=== PATIENT | male | born 1965 | race Caucasian/White ===

== ENCOUNTER 2025-03-09 14:00 | Emergency (ER) | payer OTHER, SELFPAY ==
--- NOTE | ~2025-03-09 | CT_ITS ---
EXAMINATION: CT brain wo con DATE: 03/09/2025 15:02 INDICATION: Head injury TECHNIQUE: Computed tomography (CT) of the head was performed without intravenous contrast. Sagittal and coronal reconstructions were performed. The mA was adjusted according to patient size. Iterative reconstruction technique was employed. The dose-length product was 681.00 mGy-cm. COMPARISON: None FINDINGS: No fracture. No acute intracranial hemorrhage, acute infarction or abnormal extra axial fluid collect ion. Ventricles are normal and symmetric. No mass/mass effect. The orbits, paranasal sinuses and mast oid air cells are normal. IMPRESSION: 1. Normal head CT. No fracture or acute intracranial process.. Reviewed, dictated and finalized at location A.
--- OUTSIDE RECORDS SUMMARY | 2025-03-09 14:04 | XMS_ITS | Referral Summary ---
Author Organization [facility] Address [address] [place] [address] Care Team Providers Care Specialty Sales Consultant Name Role Phone Joshua Oakley MD Primary Care Provider Ivan Mijares MD Unavailable [phone] Encounters Date Type Department Care Team Description 01/03/2025 3:30 PM CDT Office Visit [facility] Family Medicine at [place] [address] [place] [address] Joshua Oakley MD Annual physical exam (Primary Dx); Colon cancer screening from Last 3 Months Allergies No known active allergies Medications omeprazole (PriLOSEC) 40 mg capsule Take 1 capsule (40 mg total) by mouth daily 90 capsule 1 4 Active fluticasone propionate (FLONASE) 50 mcg/actuation nasal sprayIndication s:Dysfunction of left eustachian tube Administer 2 sprays into each nostril daily 1 each 3 4 Active rosuvastatin (CRESTOR) 10 mg tablet Take 1 tablet (10 mg total) by mouth daily 30 tablet 5 5 Active pregabalin (LYRICA) 75 mg capsuleIndicati ons:Neuropathic pain TAKE 1 CAPSULE BY MOUTH TWICE A DAY 180 capsule 5 Active meloxicam (MOBIC) 15 mg tablet Take 1 tablet (15 mg total) by mouth daily 5 Active clotrimazole-be tamethasone (LOTRISONE) cream Apply topically 2 (two) times a day 05/13/202 5 Active Active Problems Problem Noted Date Diagnosed Date Bilateral tennis elbow 11/18/2021 Lung nodule 06/09/2021 Prediabetes 06/09/2021 Neuropathic pain 06/08/2021 Primary osteoarthritis of left shoulder 11/07/19 Irritable bowel syndrome wit h both constipation and diarrhea 10/29/2020 Mixed hyperlipidemia 10/29/2020 Annual physical exam 09/03/2020 Resolved Problems Problem Noted Date Diagnosed Date Resolved Date COVID-19 06/16/2021 11/18/2021 Acute respiratory failure with hypoxia 06/08/2021 11/18/2021 Pneumonia of both lungs due to infectious organism 06/08/2021 11/18/2021 Acute metabolic encephalopathy 06/08/2021 11/18/2021 Shortness of breath 06/08/2021 06/28/20 21 Acute pain of left shoulder 11/01/2020 04/01/2021 Flank pain 09/03/2020 04/01/2021 Bowel habit changes 09/03/2020 10/30/19 21 COVID-19 11/18/2021 Immunizations Immunization Administration Dates Next Due Influenza, Unspecified 05/10/2024(Deferr ed: Patient Refused),05/10/2024(Deferred: Patient Refused),08/20/2023(Deferred: Patient Refused),05/10/2022(Deferred: Patient Refused),06/28/2021(Deferred: Patient Refused) Social History Tobacco Use Types Packs/Day Years Used Date Smoking Tobacco: Never Smokeless Tobacco: Current Chew Tobacco Cessation:Ready to Q uit: Not Asked; Counseling Given: Not Answered Alcohol Use Standard Drinks/Week Comments Not Currently 0 (1 standard drink = 0.6 oz pur e alcohol) AUDIT-C Answer Date Recorded Q1: How often do you have a drink containing alcohol? Never 01/03/2025 Q2: How many drinks containi ng alcohol do you have on a typical day when you are drinking? Patient does not drink Q3: How often do you have si x or more drinks on one occasion? 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 Gender Identity Not on file Sexual Orientation Not on file Last Filed Vital Signs Vital Sign Reading Time Taken Comments Blood Pressure 130/80 01/03/2025 2:56 PM CDT Pulse 88 01/03/2025 2:56 PM CDT Temperature 37.3 C (99.1 F) 01/03/2025 2:56 PM CDT Respiratory Rate 18 01/03/2025 2:56 PM CDT Oxygen Saturation 97% 01/03/2025 2:56 PM CDT Inhaled Oxygen Concentration - - Weight 92.4 kg (203 lb 12.8 oz) 01/03/2025 2:56 PM CDT Height 175.3 cm (5' 9) 01/03/2025 2:56 PM CDT Body Mass Index 30.1 01/03/2025 2:56 PM CDT Plan of Treatment Not on file Procedures Procedure Name Priority Date/Time Associated Diagnosis Comments PSA SCREEN Routine 11/30/2024 8:02 AM CDT Annual physical exam Mixed hyperlipidemia Prediabetes Prostate cancer screening from Last 3 Months or Most Recently Relevant to Health Maintenance Results * PSA screen (11/30/2024 8:02 AM CDT) PSA 1.94 < OR = 4.00 ng/mL [facility] Comment: The total PSA value from this assay system is standardized against the WHO standard. The test result will be approximately 20% lower when compared to the equimolar-standardized total PSA (Brady Nogales). Comparison of serial PSA results should be interpreted with this fact in mind. This test was performed using the Siemens chemiluminescent method. Values obtained from different assay methods cannot be used interchangeably. PSA levels, regardless of value, should not be interpreted as absolute evidence of the presence or absence of disease. Blood 11/30/2024 8:02 AM CDT 11/30/2024 8:03 AM CDT Narrative [facility] - 12/01/2024 6:04 AM CDT FASTING:YES FASTING: YES Joshua Oakley MD LAB BLOOD ORDERABLES Final Re sult [facility] [address] [address] [facility] [address] from Last 3 Months or Most Recently Relevant to Health Maintenance [place] Care Teams Specialty Sales Consultant Relationship Specialty Start Date End Date Joshua Oakley MD PCP - General Family Medicine 08/30/20 Ivan Mijares MD [address] [place] [address] [place] [id number] Consulting Physician Pulmonary Disease 06/16/21
--- OUTSIDE RECORDS SUMMARY | 2025-03-09 14:04 | XMS_ITS | Clinical Summary ---
Author Organization [facility] Address [address] [place] [address] Care Team Providers Care Calendering Machine Operator Name Role Phone Joshua Oakley MD Primary Care Provider [phone] Ivan Mijares MD Unavailable [phone] Allergies No known active allergies Medications omeprazole [...] Apply topically 2 (two) times a day 5 Active Active Problems Problem Noted Date Diagnosed Date Bilateral tennis elbow 11/18/2021 Lung nodule 06/09/2021 Prediabetes 06/09/2021 Neuropathic pain 06/08/2021 Primary osteoarthritis of left shoulder 11/07/19 21 Irritable bowel syndrome wit h both constipation and diarrhea 10/29/2020 Mixed hyperlipidemia 10/29/2020 Annual physical exam 09/03/2020 Resolved Problems Problem Noted Date Diagnosed Date Resolved Date COVID-19 06/16/2021 11/18/2021 Acute respiratory failure with hypoxia 06/08/2021 11/18/2021 Pneumonia of both lungs due to infectious organism 06/08/2021 11/18/2021 Acute metabolic encephalopathy 06/08/2021 11/18/2021 Shortness of breath 06/08/2021 06/28/20 Acute pain of left shoulder 11/01/2020 04/01/2021 Flank pain 09/03/2020 04/01/2021 Bowel habit changes 09/03/2020 10/30/19 21 COVID-19 11/18/2021 Encounters Date Type Department Care Team Description 01/03/2025 3:30 PM CDT Office Visit [facility] Family Medicine at [address] [place] [address] Joshua Oakley MD Annual physical exam (Primary Dx); Colon cancer screening from Last 3 Months Immunizations Immunization Administration Dates Next Due Influenza, Unspecified 05/10/2024(Deferr ed: Patient Refused),05/10/2024(Deferred: Patient Refused),08/20/2023(Deferred: Patient Refused),05/10/2022(Deferred: Patient Refused),06/28/2021(Deferred: Patient Refused) Surgical History Surgery Date Site/Laterality Comments HAND TENDON SURGERY 08/10/1981 - 08/09/1982 Right pinky finger Medical History Medical History Date Comments Hyperlipidemia Ear problems GERD (gastroesophageal reflux disease) Family History Medical History Relation Name Comments No Known Problems Father No Known Problems Mother Relation Name Status Comments Father Alive Mother Alive Social History Tobacco Use Types Packs/Day Years [...] on file 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 Gender Identity Not on file Sexual Orientation Not on file Obstetrics History Last Filed Vital Signs Vital Sign Reading [...] 01/03/2025 2:56 PM CDT Plan of Treatment Health Maintenance Due Date Last Done Comments Colon Cancer Screening-Colonoscopy 1965 Hepatitis C Screening 1965 DTaP/Tdap/Td Vaccine (1 - Tdap) 1976 Hepatitis B Screening 1983 Zoster Vaccine (1 of 2) 2015 Depression Screening 08/29/2025 08/29/2024, 08/20/2023, 12/16/2022, Additional history exists Regular Well Visit/Exam 18-64 01/03/2026 01/03/2025, 08/20/2023, 11/18/2021, Additional history exists Prostate Cancer Screening-PSA 11/30/2026 11/30/2024, 08/05/2023, 09/06/2021, Additional history exists Influenza Vaccine Discontinued Pneumococcal vaccine <65 Aged Out No longer eligible based on patient's age to complete this topic Procedures Procedure Name Priority Date/Time Associated Diagnosis Comments PSA SCREEN Routine 11/30/2024 8:02 AM CDT Annual physical exam Mixed hyperlipidemia Prediabetes Prostate cancer screening from Last 3 Months or Most Recently Relevant to Health Maintenance Results * PSA screen (11/30/2024 8:02 AM CDT) PSA 1.94 < OR = 4.00 ng/mL [facility] Comment: The total PSA value from this assay system is standardized against the WHO standard. The test result will be approximately 20% lower when compared to the equimolar-standardized total PSA (Brady Maribell). Comparison of serial PSA results should be [...] LAB BLOOD ORDERABLES Final Re sult [facility] [address] [place] [address] from Last 3 Months or Most Recently Relevant to Health Maintenance [place] [address] [address] [address] [facility] Care Teams Calendering Machine Operator Relationship Specialty Start Date End Date Joshua Oakley MD PCP - General Family Medicine 08/30/20 Ivan Mijares MD [address] [place] [address] Consulting Physician Pulmonary Disease 06/16/21
[2025-03-09 14:05] VITALS: BP 170/85; PULSE 80; RESP 16; TEMP 36.6; O2SAT 98
--- OUTSIDE RECORDS SUMMARY | 2025-03-09 15:33 | XMS_ITS | Referral Summary ---
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 Comparison of serial PSA results should be [...] ORDERABLES Final Re sult [facility] [address] [address] [facility] [place] [address] from Last 3 Months or Most Recently Relevant to Health Maintenance Insurance [place] Care Teams Software Tools Build Engineer Relationship Specialty Start Date End Date Joshua Oakley MD PCP - General Family Medicine 08/30/20 Ivan Mijares MD [address] [place] [address] [place] [id number] Consulting Physician Pulmonary Disease 06/16/21
--- OUTSIDE RECORDS SUMMARY | 2025-03-09 15:33 | XMS_ITS | Clinical Summary ---
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 Gender Identity Not on file Sexual Orientation [...] PSA 1.94 < OR = 4.00 ng/mL [facility] Comment: The total PSA value from [...] LAB BLOOD ORDERABLES Final Re sult [facility] [address] [place] [address] from Last 3 Months or Most Recently Relevant to Health Maintenance [place] [address] [place] [address] [facility] Care Teams Printer Small Print Shop Relationship Specialty Start Date End Date Joshua Oakley MD PCP - General Family Medicine 08/30/20 Ivan Mijares MD [address] [place] [address] Consulting Physician Pulmonary Disease 06/16/21
[2025-03-09] MEDS: TETANUS,DIPHTHERIA,AC PERTUSSIS ADULT (0.5 ML) BOOSTRIX IM (15:53)
--- NOTE | 2025-03-09 15:59 | PC.NURSE ---
Adhesive glue placed on patient's facial lacs by
--- NOTE | 2025-03-09 21:27 | ED_ITS ---
HPI - Wound/Laceration General Chief Complaint: Wound/Laceration Stated Complaint: STRUCK BY A SIGN AT WORK Time Seen by Provider: 03/09/25 14:50 History of Present Illness HPI narrative: Patient was at work when he got struck by a signed stand, to the face. Mostly hit him to the right eye, he has some pain to the eye however thankfully no vision changes. No loss of consciousness though he did get knocked onto the ground. No injuries elsewhere Related Data Allergies Allergy/AdvReac Type Severity Reaction Status Date / Time No Known Allergies Allergy Unverified 10/20/16 10:25 Review of Systems Review of Systems: All systems reviewed & are unremarkable except as noted in HPI and below Exam Narrative: EXAMINATION OF ORGAN SYSTEMS/BODY AREAS: Constitutional: Vital signs per nursing GENERAL:[No acute distress, non-toxic appearing.] HEAD: Trauma to head EYES: Painless EOMI, slight redness to the right conjunctiva, abrasion to the right eyelid, ENT: Hearing grossly intact; 2 lacerations to right forehead LUNGS: Nonlabored breathing. HEART: [Regular rate and rhythm] ABD: [Soft], [nontender to palpation] EXT: Normal range of motion SKIN: Abrasions and laceration of face NEURO: [Alert and oriented x 3. No gross focal sensory or strength deficits.] PSYCH: Normal affect Course Vital Signs Vital signs: Vital Signs Temperature 98 F 03/09/25 14:05 Pulse Rate 80 03/09/25 14:05 Respiratory Rate 16 03/09/25 14:05 Blood Pressure 170/85 H 03/09/25 14:05 Pulse Oximetry 98 03/09/25 14:05 Temperature 98 F 03/09/25 14:05 Pulse Rate 80 03/09/25 14:05 Respiratory Rate 16 03/09/25 14:05 Blood Pressure 170/85 H 03/09/25 14:05 Pulse Oximetry 98 03/09/25 14:05 Procedures Laceration Laceration 1: Date: 03/09/25 Site: face Side (If applicable): right Size (cm): 1 Description: linear Depth: simple, single layer Pre-repair: wound explored, irrigated and deep structures intact ====== Skin Level ====== Skin layer closed with: dermabond ====== Subcutaneous Layer ====== ====== Muscle Layer ====== ====== Tendon Layer ====== Laceration 2: Date: 03/09/25 Site: face Side (If applicable): right Size (cm): 1 Description: linear Depth: simple, single layer Pre-repair: wound explored, irrigated and deep structures intact ====== Skin Level ====== Skin layer closed with: dermabond ====== Subcutaneous Layer ====== ====== Muscle Layer ====== ====== Tendon Layer ====== MDM - Wound/Laceration MDM Narrative Medical decision making narrative: Patient presents after being hit in the face by a sign post, he does have several lacerations, these are cleaned well and glued, since he got knocked backwards and hit his head again I did obtain a CT brain which is thankfully negative. He is does have some pain to his eye however he has normal movement, does have an abrasion to the eyelid, I suspect this is the cause of his pain is not severe, he also has no vision changes or blurry vision or low vision loss, however I will have him follow up with Ophthalmology with strict return precautions provided in person and on paper Discharge Plan Discharge Clinical Impression: Abrasion, Laceration Patient Disposition: Home Condition: Stable Instructions: Abrasion (ED), Skin Adhesive Care (ED) Additional Instructions: Please follow up with your PCP for recheck of your blood pressure. If you still have eye pain tomorrow, please see the digital marketing specialist tomorrow. If you start experiencing any vision loss or blurry vision, please return to the ER immediately. Patient Language: Estonian Follow-up/Referrals: [facility] [Outside] - 1 Day PHYSICIAN NOT ON STAFF,NONSTAFF [Primary Care Provider] - Stand Alone Forms: Work/School Release IP
== END 2025-03-09 16:00 | disposition home or self-care (01) ==
PROVIDERS: Emergency Provider Emergency Medicine
DX: S01.81XA Laceration without foreign body of other part of head, initial encounter (principal); S00.81XA Abrasion of other part of head, initial encounter; Z23 Encounter for immunization; W22.8XXA Striking against or struck by other objects, initial encounter
CPT/HCPCS: 12011; 70450; 90471; 90715; 99284